=== PATIENT | female | born 2000 | race Two or more races ===

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

== ENCOUNTER 2018-01-28 06:00 | Emergency (ER) | payer SELFPAY ==
--- NOTE | 2018-01-28 06:42 | ER Document Report ---
ED General - General Chief Complaint: Vaginal Bleeding Stated Complaint: VAGINAL BLEEDING Time Seen by Provider: 01/28/18 06:31 Mode of Arrival: Ambulatory Information source: Patient Notes: 18-year-old female presents emergency department with complaints of suprapubic cramping, abnormal vaginal discharge, vaginal burning for the last few weeks. Patient states that she has been having unprotected sex. Patient is concerned she might have contracted a sexually transmitted disease. Patient states that her last menstrual period was a month ago. She has not taken a home test. She denies any nausea, vomiting, diarrhea, constipation. TRAVEL OUTSIDE OF THE [place] IN LAST 30 DAYS: No - HPI Onset: Other - weeks Onset/Duration: Gradual Quality of pain: Cramping Associated symptoms: Other - vaginal discharge Exacerbated by: Denies Relieved by: Denies Similar symptoms previously: No Recently seen / treated by doctor: No - Related Data Allergies/Adverse Reactions: No Known Allergies Allergy (Verified 12/10/17 14:59) Past Medical History - General Information source: Patient Last Menstrual Period: 12/27/2017 - Social History Smoking Status: Current Every Day Smoker Chew tobacco use (# tins/day): No Frequency of alcohol use: Occasional Drug Abuse: None Family History: Reviewed & Not Pertinent Patient has suicidal ideation: No Patient has homicidal ideation: No Renal/ Medical History: Denies: Hx Peritoneal Dialysis Review of Systems - Review of Systems Constitutional: No symptoms reported EENT: No symptoms reported Cardiovascular: No symptoms reported Respiratory: No symptoms reported Gastrointestinal: No symptoms reported Genitourinary: Dysuria, Discharge, Hematuria Female Genitourinary: Vaginal discharge Musculoskeletal: No symptoms reported Skin: No symptoms reported Hematologic/Lymphatic: No symptoms reported Neurological/Psychological: No symptoms reported -: Yes All other systems reviewed and negative Physical Exam - Vital signs Vitals: Temp Pulse Resp BP Pulse Ox 97.5 F 84 16 151/82 H 97 01/28/18 06:02 01/28/18 06:02 01/28/18 06:02 01/28/18 06:02 01/28/18 06:02 - Notes Notes: PHYSICAL EXAMINATION: GENERAL: Well-appearing, well-nourished and in no acute distress. HEAD: Atraumatic, normocephalic. EYES: Pupils equal round and reactive to light, extraocular movements intact, conjunctiva are normal. ENT: Nares patent, oropharynx clear without exudates. Moist mucous membranes. NECK: Normal range of motion, supple without lymphadenopathy LUNGS: Breath sounds clear to auscultation bilaterally and equal. No wheezes rales or rhonchi. HEART: Regular rate and rhythm without murmurs ABDOMEN: Soft, nontender, nondistended abdomen. No guarding, no rebound. No masses appreciated. Female : White vaginal discharge. +CMT. No ovarian tenderness to palpation. Musculoskeletal: Normal range of motion, no pitting or edema. No cyanosis. NEUROLOGICAL: Cranial nerves grossly intact. Normal speech, normal gait. Normal sensory, motor exams PSYCH: Normal mood, normal affect. SKIN: Warm, Dry, normal turgor, no rashes or lesions noted. Course - Re-evaluation Re-evalutation: 01/28/18 07:54 Patient requesting treatment for gonorrhea and Chlamydia. Patient given Rocephin and azithromycin in the emergency department. Pelvic labs were obtained. No trichomonas appreciated. No signs of urinary tract infection. Patient is not . Patient instructed to follow-up with her primary care physician this week, to take [id number] medications as needed for symptom relief, and to return to the emergency department for worsening symptoms. Patient is agreeable with plan of care. - Vital Signs Vital signs: Temp Pulse Resp BP Pulse Ox 98.2 F 64 18 128/73 H 100 01/28/18 07:39 01/28/18 07:39 01/28/18 07:39 01/28/18 07:39 01/28/18 07:39 - Laboratory Laboratory results interpreted by me: 01/28/18 06:33 Urine Urobilinogen 2.0 H Discharge - Discharge Clinical Impression: Cervicitis Condition: Good Disposition: HOME, SELF-CARE Instructions: Cervicitis ([facility]) Referrals: LETITIA WILLS MD [ACTIVE STAFF] - Follow up as needed
[2018-01-28 07:03] LABS: APPEARANCE,URINE CLEAR; BILIRUBIN,URINE NEGATIVE (NEGATIVE); COLOR,URINE YELLOW; GLUCOSE, URINE NEGATIVE (NEGATIVE); KETONES,URINE NEGATIVE (NEGATIVE); LEUKOCYTE ESTERASE,URINE NEGATIVE (NEGATIVE); NITRITE,URINE NEGATIVE (NEGATIVE); PROTEIN,URINE NEGATIVE (NEGATIVE); URINE SPECIFIC GRAVITY 1.024
[2018-01-28] MEDS ORDERED: CEFTRIAXONE INJ 250 MG VIAL IM ONE (07:26)
[2018-01-28] MEDS ORDERED: LIDOCAINE 1% INJ (10 MG/ML) 10 ML MDV INJ ONE (07:26)
[2018-01-28] MEDS ORDERED: AZITHROMYCIN 250 MG TABLET PO ONE (07:26)
[2018-01-28 07:40] VITALS: BP 128/73
[2018-01-28 07:40] LABS: RBCS (WET MOUNT) RARE RBCS SEEN; T.VAGINALIS (WET MOUNT) NO TRICHOMONAS SEEN; WBCS (WET MOUNT) FEW WBCS SEEN; YEAST (WET MOUNT) NO YEAST SEEN
[2018-01-28 09:08] LABS: CHLAM PCR NOT DETECTED (NOT DETECT); GON PCR NOT DETECTED (NOT DETECT)
== END 2018-01-28 08:00 | disposition home or self-care (01) ==
LOC: ER 06:00
DX: N72 Inflammatory disease of cervix uteri (principal); N89.8 Other specified noninflammatory disorders of vagina; Z20.2 Contact with and (suspected) exposure to infections with a predominantly sexual mode of transmission; F17.200 Nicotine dependence, unspecified, uncomplicated
CPT/HCPCS: 99284; 96372; 87210; 81025; 81001; 87491; 87591; J0696

== ENCOUNTER 2019-06-21 17:13 | Outpatient (CLI) | payer MEDICAID ==
[2019-06-21 18:12] LABS: ABSOLUTE EOSINOPHILS # (AUTO) 0.1 10^3/uL (0.0-0.6); ABSOLUTE LYMPHOCYTES (AUTO) 1.9 10^3/uL (0.5-4.7); ABSOLUTE MONOCYTES (AUTO) 0.9 10^3/uL (0.1-1.4); ABSOLUTE NEUT (AUTO) 5.7 10^3/uL (1.7-8.2); BASOPHILS % (AUTO) 0.2 % (0-2); EOSINOPHILS % (AUTO) 1.1 % (0-6); HEMATOCRIT 31.7 % (36.0-47.0); HEMOGLOBIN 10.6 g/dL (12.0-15.5); LYMPHOCYTES % (AUTO) 21.7 % (13-45); MEAN CORPUSCULAR HEMOGLOBIN 28.3 pg (27.0-33.4); MEAN CORPUSCULAR HGB CONC 33.4 g/dL (32.0-36.0); MEAN CORPUSCULAR VOLUME 85 fl (80-97); MONOCYTES % (AUTO) 10.4 % (3-13); PLATELET COUNT 202 10^3/uL (150-450); RED BLOOD COUNT 3.73 10^6/uL (3.72-5.28); RED CELL DISTRIBUTION WIDTH 13.5 % (11.5-14.0); TOTAL CELLS COUNTED % (AUTO) 100 %; WHITE BLOOD COUNT 8.6 10^3/uL (4.0-10.5)
[2019-06-21 18:18] LABS: SEGMENTED NEUTROPHILS % (AUTO) 66.6 % (42-78)
[2019-06-21 18:25] LABS: URINE CREATININE 171.8 mg/dL (16-327)
[2019-06-21 18:29] LABS: ALKALINE PHOSPHATASE 160 U/L (38-126); ANION GAP 9 (5-19); ASPARTATE AMINO TRANSFERASE 14 U/L (14-36); BILIRUBIN,DIRECT 0.2 mg/dL (0.0-0.4); BILIRUBIN,TOTAL 0.4 mg/dL (0.2-1.3); BLOOD UREA NITROGEN 7 mg/dL (7-20); CALCIUM 8.7 mg/dL (8.4-10.2); CARBON DIOXIDE 21 mmol/L (22-30); CHLORIDE 107 mmol/L (98-107); GLUCOSE 82 mg/dL (75-110); URIC ACID 3.1 mg/dL (2.5-6.2)
[2019-06-21 18:59] LABS: APPEARANCE,URINE SLIGHTLY-CLOUDY; BILIRUBIN,URINE NEGATIVE (NEGATIVE); COLOR,URINE YELLOW; GLUCOSE, URINE 50 mg/dL (NEGATIVE); KETONES,URINE NEGATIVE (NEGATIVE); LEUKOCYTE ESTERASE,URINE NEGATIVE (NEGATIVE); NITRITE,URINE NEGATIVE (NEGATIVE); PROTEIN,URINE 30 mg/dL (NEGATIVE); URINE SPECIFIC GRAVITY 1.026; UROBILINOGEN,URINE NEGATIVE mg/dL (<2.0)
[2019-06-21 19:10] LABS: URINE AMPHETAMINES SCREEN NEGATIVE; URINE BARBITURATES SCREEN NEGATIVE; URINE BENZODIAZEPINES SCREEN NEGATIVE; URINE COCAINE SCREEN NEGATIVE; URINE MARIJUANA (THC) SCREEN NEGATIVE; URINE METHADONE SCREEN NEGATIVE; URINE PHENCYCLIDINE SCREEN NEGATIVE
--- NOTE | 2019-06-21 19:18 | Non Stress Test Report ---
Non Stress Test Datetime Report Generated by CPN: 06/21/2019 19:17 DEMOGRAPHIC EGA NST: 37.4 INDICATION Indication for Study (NST) Other: LC- pre-e work up VITAL SIGNS Temperature - NST: 98.6 Pulse - NST: 81 RESP - NST: 15 NBPSYS NST: 133 NBPDIA NST: 69 MONITORING Monitor Explained: Monitor Explained; Test Explained; Patient Verbalized Understanding Time on Monitor: 06/21/2019 18:23 Time off Monitor: 06/21/2019 19:02 NST Duration: 39 NST INTERVENTIONS NST Interventions: PO Hydration Physician Notified NST: Dr Aguirre BABY A: [id number] BABY A Movement : Present Contraction Frequency : irritability FHR Baseline : 130 Accelerations : 15X15 Decelerations : None Variability : Moderate 6-25bpm NST Review: Meets Criteria for Reactive NST NST Review and Verified By : Tasha Camp RNC NST Results: Reactive NST COMMENTS NST Comments: MD on unit reviewing FHT strip NST REPORT Report Trigger: Send Report
== END 2019-06-21 19:10 | disposition home or self-care (01) ==
LOC: LC 17:13
PROVIDERS: ATTEND Student in an Organized Health Care Education/Training Program
PROC: 4A1HXCZ Monitoring of Products of Conception, Cardiac Rate, External Approach (ICD-10-PCS; principal; 2019-06-21)
DX: O24.410 Gestational diabetes mellitus in pregnancy, diet controlled (principal); O16.3 Unspecified maternal hypertension, third trimester; Z3A.37 37 weeks gestation of pregnancy
CPT/HCPCS: 36415; 59025; 80053; 80307; 81001; 82570; 83615; 84156; 84550; 85025

== ENCOUNTER 2019-07-07 07:03 | Inpatient (IN) | payer MEDICAID ==
[2019-07-07 07:50] LABS: APPEARANCE,URINE SLIGHTLY-CLOUDY; BILIRUBIN,URINE NEGATIVE (NEGATIVE); COLOR,URINE YELLOW; GLUCOSE, URINE >=500 mg/dL (NEGATIVE); KETONES,URINE NEGATIVE (NEGATIVE); LEUKOCYTE ESTERASE,URINE NEGATIVE (NEGATIVE); NITRITE,URINE NEGATIVE (NEGATIVE); PROTEIN,URINE NEGATIVE (NEGATIVE); URINE SPECIFIC GRAVITY 1.017; UROBILINOGEN,URINE NEGATIVE mg/dL (<2.0)
[2019-07-07] MEDS ORDERED: MISOPROSTOL 0.2 MG TABLET PO ONE (08:00)
--- NOTE | 2019-07-07 08:07 | Admission Physical ---
Datetime Report Generated by CPN: 07/07/2019 08:07 CURRENT ADMISSION Chief Complaint: Scheduled Induction of Labor Chief Complaint Other: Here for scheduled IOL d/t poorly controled GDM further complicated by CHlamydia in early preg-treated and ASHER negative. Indication for Induction: Maternal Diabetes Indication for Induction- Other: poorly controled GDM on meds Admit Impression : Term, Intrauterine ; Intact Membranes; Induction of Labor Admit Plan: Admit to Unit; Initiate Labor Induction Protocol ALLERGIES Medication Allergies: No Medication Allergies: No Known Allergies (07/07/2019) Latex: No Latex Allergies Food Allergies: none Environmental Allergies: none OBSTETRICAL HISTORY EDC: 07/08/2019 00:00 : 1 Para: 0 Term: 0 : 0 SAB: 0 IAB: 0 Ectopic: 0 Livin Cesareans: 0 VBACs: 0 Multiple Births: 0 Gestational Diabetes: Yes Rh Sensitization: No Incompetent Cervix: No JANIYA: No Infertility: No ART Treatment: No Uterine Anomaly: No IUGR: No Hx Previous C/S: No Macrosomia: No Hx Loss/Stillborn: No PIH: No Hx : No Placenta Previa/Abruption: No Depression/PP Depression: No PTL/PROM: No Post Hemorrhage: No Current Procedures: Ultrasound; NST Obstetrical History Comments: G1- current, GDM diet controlled; +Chlamydia this SEE RECORDS Alcohol: No Marijuana : No Cocaine: No Other Illicit Drugs: No Cigarettes: Former Smoker. 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 Surgery: No Heart Disease: No Hosp/Surgery: Yes Autoimmune Disorder: No Anesthetic Complications: No Kidney Disease: No Abnormal Pap Smear: No Neuro/Epilepsy: No Psychiatric Disorders: No Other Medical Diseases: No Hepatitis/Liver Disease: No Significant Family History: No Varicosities/Phlebitis: No Trauma/Violence : No Thyroid Dysfunction: No Medical History Comments: pyloric stenosis, asthma- had inhaler does not currently, INFECTIOUS HISTORY Gonorrhea: No Genital Herpes: No Chlamydia: Yes Tuberculosis: No Syphilis: No Hepatitis: No HIV/AIDS Exposure: No Rash or Viral Illness: No HPV: No Infectious History Comments: + chlamydia 04/28/19, ASHER negative on 05/16/19 and 06/15/19 PHYSICAL EXAM General: Normal HEENT: Normal Neurologic: Normal Thyroid: Normal Heart: Normal Lungs: Normal Breast: Normal Back: Normal Abdomen: Normal Genitourinary Exam: Normal Extremities: Normal DTRs: Normal Pelvic Type: Adequate Vital Signs: Reviewed VAGINAL EXAM Dilatation: 1 Effacement: 30 Station: -3 Contraction Comments: no regular MEMBRANES Membranes: Intact FETUS A EGA: 39.6 Monitoring: External US FHR- Baseline: 130 Variability: Moderate 6-25bpm Accelerations: 15X15 Decelerations: None FHR Category: Category I Presentation: Vertex Admit Comment: 19 yo G1 at 39.6 wks EGA who is a scheduled IOL d/t poorly controled GDM further complicated by CHlamydia in early preg-treated and ASHER negative -Admit to LDR -NPO and IVFs: LR at 125 cc/hr -CEFM and toco -B+, GBS negative, RPR NR -Last EFW was 4051g or 8 lb 15 oz 97% on 07/12/19 -WIll start cytotec 25 mcg buccally now. Likely perez bulb later this am. -Membranes intact. -Anticipate PLANS FOR LABOR AND DELIVERY Labor and Delivery: None Pain Management: Epidural Feeding Preference: Breast Benefit of Breast Feed Discussed: Yes Circumcision: Yes INFORMED CONSENT Informed Consent Obtained: Vaginal Delivery; Induction of Labor; Risks, Benefits and Alternatives Discussed Signature: with User ID: Claribel : with User ID: Claribel
[2019-07-07 08:08] LABS: URINE AMPHETAMINES SCREEN NEGATIVE; URINE BARBITURATES SCREEN NEGATIVE; URINE BENZODIAZEPINES SCREEN NEGATIVE; URINE COCAINE SCREEN NEGATIVE; URINE MARIJUANA (THC) SCREEN NEGATIVE; URINE METHADONE SCREEN NEGATIVE; URINE PHENCYCLIDINE SCREEN NEGATIVE
[2019-07-07] MEDS ORDERED: GLUCAGON,HUMAN RECOMB 1 MG INJ IM PRN (08:13)
[2019-07-07] MEDS ORDERED: INSULIN REG, HUMAN 100 UNIT/ML 3 ML VIAL (PYX) SUBCUT PRN (08:13)
[2019-07-07] MEDS ORDERED: DEXTROSE 50%-WATER 25 GM/50 ML DISP.SYRIN IV PRN ×2 (08:13)
[2019-07-07] MEDS ORDERED: DEXTROSE 40% GEL 15 GM TUBE PO PRN ×2 (08:13)
[2019-07-07 08:18] LABS: ABSOLUTE EOSINOPHILS # (AUTO) 0.1 10^3/uL (0.0-0.6); ABSOLUTE LYMPHOCYTES (AUTO) 1.7 10^3/uL (0.5-4.7); ABSOLUTE MONOCYTES (AUTO) 0.9 10^3/uL (0.1-1.4); ABSOLUTE NEUT (AUTO) 6.1 10^3/uL (1.7-8.2); BASOPHILS % (AUTO) 0.3 % (0-2); HEMATOCRIT 29.8 % (36.0-47.0); HEMOGLOBIN 10.2 g/dL (12.0-15.5); LYMPHOCYTES % (AUTO) 19.8 % (13-45); MEAN CORPUSCULAR HEMOGLOBIN 28.4 pg (27.0-33.4); MEAN CORPUSCULAR HGB CONC 34.4 g/dL (32.0-36.0); MEAN CORPUSCULAR VOLUME 83 fl (80-97); MONOCYTES % (AUTO) 9.8 % (3-13); PLATELET COUNT 190 10^3/uL (150-450); RED BLOOD COUNT 3.61 10^6/uL (3.72-5.28); RED CELL DISTRIBUTION WIDTH 13.7 % (11.5-14.0); SEGMENTED NEUTROPHILS % (AUTO) 69.1 % (42-78); TOTAL CELLS COUNTED % (AUTO) 100 %; WHITE BLOOD COUNT 8.7 10^3/uL (4.0-10.5)
[2019-07-07] MEDS ORDERED: INSULIN REG, HUMAN 100 UNIT/ML 3 ML VIAL (PYX) ONE (08:20)
[2019-07-07] MEDS: RINGERS SOLUTION,LACTATED 1,000 ML IV PRN ×2 (08:30→17:49)
[2019-07-07 08:46] LABS: ALBUMIN 2.7 g/dL (3.5-5.0); ALKALINE PHOSPHATASE 162 U/L (38-126); ANION GAP 7 (5-19); ASPARTATE AMINO TRANSFERASE 14 U/L (14-36); BILIRUBIN,DIRECT 0.2 mg/dL (0.0-0.4); BILIRUBIN,TOTAL 0.2 mg/dL (0.2-1.3); BLOOD UREA NITROGEN 9 mg/dL (7-20); CALCIUM 8.4 mg/dL (8.4-10.2); CARBON DIOXIDE 19 mmol/L (22-30); CHLORIDE 109 mmol/L (98-107); GLUCOSE 129 mg/dL (75-110); TOTAL PROTEIN 5.6 g/dL (6.3-8.2)
[2019-07-07] MEDS ORDERED: OXYTOCIN 10 UNIT/ML VIAL ONE (09:16)
[2019-07-07] MEDS ORDERED: MISOPROSTOL 0.2 MG TABLET ONE (09:16)
[2019-07-07] MEDS ORDERED: LIDOCAINE 1% INJ-PF (10 MG/ML) 30 ML SDV ONE (09:16)
[2019-07-07] MEDS ORDERED: OXYTOCIN/NORMAL SALINE 20 UNIT/1,000 ML RTUINJ ONE (09:17)
[2019-07-07] MEDS: OXYTOCIN/NORMAL SALINE 20 UNIT/1,000 ML RTUINJ IV PRN (09:28)
[2019-07-07 10:03] LABS: CHLAM PCR NOT DETECTED (NOT DETECT)
[2019-07-07] MEDS ORDERED: DEXTROSE 5%-LACTATED RINGERS 1,000 ML IV PRN (19:14)
[2019-07-07 20:31] LABS: ABSOLUTE LYMPHOCYTES (AUTO) 1.4 10^3/uL (0.5-4.7); ABSOLUTE MONOCYTES (AUTO) 0.8 10^3/uL (0.1-1.4); ABSOLUTE NEUT (AUTO) 10.7 10^3/uL (1.7-8.2); BASOPHILS % (AUTO) 0.1 % (0-2); EOSINOPHILS % (AUTO) 0.2 % (0-6); HEMATOCRIT 29.8 % (36.0-47.0); HEMOGLOBIN 10.1 g/dL (12.0-15.5); LYMPHOCYTES % (AUTO) 11.1 % (13-45); MEAN CORPUSCULAR HEMOGLOBIN 28.1 pg (27.0-33.4); MEAN CORPUSCULAR HGB CONC 33.8 g/dL (32.0-36.0); MEAN CORPUSCULAR VOLUME 83 fl (80-97); MONOCYTES % (AUTO) 6.5 % (3-13); PLATELET COUNT 168 10^3/uL (150-450); RED BLOOD COUNT 3.59 10^6/uL (3.72-5.28); SEGMENTED NEUTROPHILS % (AUTO) 82.1 % (42-78); TOTAL CELLS COUNTED % (AUTO) 100 %
[2019-07-07 20:42] LABS: FIBRINOGEN 822 mg/dL (209-497); INTERNATIONAL RATION (INR) 1.01; PARTIAL THROMBOPLASTIN TIME 28.5 SEC (23.5-35.8); PROTHROMBIN TIME 13.3 SEC (11.4-15.4)
[2019-07-07 20:51] LABS: ALBUMIN 2.6 g/dL (3.5-5.0); ALKALINE PHOSPHATASE 158 U/L (38-126); ANION GAP 6 (5-19); ASPARTATE AMINO TRANSFERASE 15 U/L (14-36); BILIRUBIN,TOTAL 0.4 mg/dL (0.2-1.3); BLOOD UREA NITROGEN 5 mg/dL (7-20); CALCIUM 8.6 mg/dL (8.4-10.2); CARBON DIOXIDE 22 mmol/L (22-30); CHLORIDE 107 mmol/L (98-107); GLUCOSE 102 mg/dL (75-110); POTASSIUM 4.2 mmol/L (3.6-5.0); TOTAL PROTEIN 5.2 g/dL (6.3-8.2)
--- NOTE | 2019-07-08 00:59 | PDOC CONSULTATION ---
Consultation Consult Date: 07/07/19 Attending physician:: NAHED PHOENIX Provider Consulted: BLAS NORIEGA Consult reason:: Chest pain History of Present Illness Admission Date/PCP: 07/07/19 07:03 NAHED PHOENIX MD Patient complains of: Chest pain History of Present Illness: LULU HOGUE is a 19 year old 1 para 0 female who was admitted at greater than 39 weeks gestation for induction of labor due to poorly controlled gestational diabetes mellitus and a chlamydia infection in early . During her induction the patient suddenly developed chest pain which she described as a constant moderately intense sharp tightness in her left upper anterior chest radiating into her left anterior neck. Pain was accompanied by mild dyspnea and was associated with movement of her torso. She denies other associated or accompanying signs and symptoms. The pain gradually resolved over the course of about 1 hour. She denies previous similar episodes. She has not identified any aggravating or ameliorating factors for her chest pain. She reported the pain to her nurse and as a result the hospitalist service was consulted for evaluation. Past Medical History Cardiac Medical History: Denies: Coronary Artery Disease, DVT, Hyperlipidema, Hypertension, Pulmonary Embolism Pulmonary Medical History: Reports: Asthma Denies: Chronic Obstructive Pulmonary Disease (COPD) EENT Medical History: Denies: Cataracts, Ears - Hearing aids Neurological Medical History: Denies: Migraine, Seizures Endocrine Medical History: Reports: Gestational Diabetes, Obesity Denies: Diabetes Mellitus Type 1, Hyperthyroidism, Hypothyroidism Renal/ Medical History: Denies: Chronic Kidney Disease, Nephrolithiasis Malignancy Medical History: Reports: None GI Medical History: Denies: Cirrhosis, Gastroesophageal Reflux Disease, Hepatitis, Peptic Ulcer Disease Musculoskeltal Medical History: Denies: Arthritis, Fibromyalgia Skin Medical History: Denies: Eczema, Psoriasis Psychiatric Medical History: Denies: Alcohol Dependency, Substance Abuse, Tobacco Dependency Traumatic Medical History: Reports: None Hematology: Denies: Anemia, Bleeding Tendencies Infectious Medical History: Reports: None Past Surgical History Past Surgical History: Reports: Other - Pyloric stenosis surgery Social History Information Source: Patient Lives with: Parents Smoking Status: Former Smoker Electronic Cigarette use?: No Frequency of Alcohol Use: None Hx Recreational Drug Use: No Drugs: None Hx Prescription Drug Abuse: No - Advance Directive Resuscitation Status: Full Code Surrogate healthcare decision maker:: Lita Jung Family History Family History: CAD, DM, Hypertension, Malignancy Parental Family History Reviewed: Yes Children Family History Reviewed: No Sibling(s) Family History Reviewed.: Yes Medication/Allergy Home Medications: Vits96/Iron Fum/Folic [ Tablet] 1 each PO DAILY 06/21/19 Allergies/Adverse Reactions: No Known Allergies Allergy (Verified 07/07/19 07:22) Review of Systems Constitutional: ABSENT: chills, fever(s) Eyes: ABSENT: visual disturbances, other - Eye pain Ears: ABSENT: hearing changes, other - Ear pain Nose, Mouth, and Throat: ABSENT: headache(s), sore throat Cardiovascular: PRESENT: edema - Bilateral lower extremities. ABSENT: chest pain, palpitations Respiratory: ABSENT: cough, dyspnea Gastrointestinal: PRESENT: constipation. ABSENT: abdominal pain, diarrhea, nausea, vomiting Genitourinary: ABSENT: dysuria, hematuria Musculoskeletal: ABSENT: back pain, joint swelling Integumentary: ABSENT: pruritus, rash Neurological: ABSENT: confusion, convulsions, focal weakness, memory loss, syncope Psychiatric: ABSENT: anxiety, depression Endocrine: ABSENT: cold intolerance, heat intolerance, polydipsia, polyphagia, polyuria Hematologic/Lymphatic: ABSENT: easy bleeding, easy bruising Allergic/Immunologic: ABSENT: seasonal rhinorrhea Physical Exam Vital Signs: Intake & Output 07/05/19 07/06/19 07/07/19 23:59 23:59 23:59 Intake Total 1000 Balance 1000 Weight 129.8 kg General appearance: PRESENT: no acute distress, cooperative, morbidly obese Head exam: PRESENT: atraumatic, normocephalic Eye exam: ABSENT: conjunctival injection, scleral icterus Ear exam: PRESENT: normal external ear exam. ABSENT: bleeding, drainage Mouth exam: PRESENT: dry mucosa, neck supple Neck exam: ABSENT: thyromegaly, tracheal deviation Respiratory exam: PRESENT: clear to auscultation david, symmetrical, unlabored Cardiovascular exam: PRESENT: RRR. ABSENT: clicks, gallop, rubs Pulses: PRESENT: normal radial pulses, normal dorsalis pedis pul Vascular exam: PRESENT: normal capillary refill. ABSENT: pallor GI/Abdominal exam: PRESENT: normal bowel sounds, soft, other - Gravid uterus at term Rectal exam: PRESENT: deferred Extremities exam: PRESENT: full ROM, +2 edema - 2+ pitting edema of the bilateral lower extremities. ABSENT: joint swelling, tenderness Musculoskeletal exam: PRESENT: ambulatory. ABSENT: deformity, dislocation Neurological exam: PRESENT: alert, oriented to person, oriented to place, oriented to time, oriented to situation, CN II-XII grossly intact. ABSENT: motor sensory deficit Psychiatric exam: PRESENT: appropriate affect, normal mood Skin exam: PRESENT: dry, intact, warm. ABSENT: jaundice, rash, urticaria Results Laboratory Results: 07/07/19 07:57 07/07/19 07:57 07/07/19 07/07/19 07/07/19 07:20 07:57 07:57 WBC 8.7 RBC 3.61 L Hgb 10.2 L Hct 29.8 L MCV 83 MCH 28.4 MCHC 34.4 RDW 13.7 Plt Count 190 Seg Neutrophils % 69.1 Sodium Potassium Chloride Carbon Dioxide Anion Gap BUN Creatinine Est GFR ( Amer) Glucose Calcium Total Bilirubin AST Alkaline Phosphatase Total Protein Albumin Urine Color YELLOW Urine Appearance SLIGHTLY-CLOUDY Urine pH 6.0 Ur Specific Dickey 1.017 Urine Protein NEGATIVE Urine Glucose (UA) >=500 H Urine Ketones NEGATIVE Urine Blood NEGATIVE Urine Nitrite NEGATIVE Ur Leukocyte Esterase NEGATIVE Blood Type B POSITIVE Antibody Screen NEGATIVE 07/07/19 07:57 WBC RBC Hgb Hct MCV MCH MCHC RDW Plt Count Seg Neutrophils % Sodium 135.4 L Potassium 4.0 Chloride 109 H Carbon Dioxide 19 L Anion Gap 7 BUN 9 Creatinine 0.43 L Est GFR ( Amer) > 60 Glucose 129 H Calcium 8.4 Total Bilirubin 0.2 AST 14 Alkaline Phosphatase 162 H Total Protein 5.6 L Albumin 2.7 L Urine Color Urine Appearance Urine pH Ur Specific Dickey Urine Protein Urine Glucose (UA) Urine Ketones Urine Blood Urine Nitrite Ur Leukocyte Esterase Blood Type Antibody Screen Assessment and Plan - Diagnosis (1) Chest pain Qualifiers: Chest pain type: unspecified Qualified Code(s): R07.9 - Chest pain, unspecified Is this a current diagnosis for this admission?: Yes (2) Gestational diabetes mellitus (GDM) in childbirth, diet controlled Is this a current diagnosis for this admission?: Yes (3) Chlamydia infection affecting in first trimester Is this a current diagnosis for this admission?: Yes (4) Term Is this a current diagnosis for this admission?: Yes - Plan Summary Summary: Patient has been reassured that the etiology of her pain is very unlikely to be cardiac and is very highly likely to be musculoskeletal. Serial cardiac enzymes, a CBC, APTT, a PT/INR, a fibrinogen, a metabolic profile and an EKG will be obtained. Further evaluation will be entertained as appropriate. Our service will follow the patient over the course of the next 24 hours. - Time Time Spent with patient: 15-24 minutes Anticipated discharge: Home
[2019-07-08 01:36] LABS: TROPONIN I < 0.012 ng/mL
[2019-07-08] MEDS ORDERED: HYDROMORPHONE HCL INJ/PF 2 MG/ML AMPULE ONE ×2 (02:03→16:03)
[2019-07-08] MEDS ORDERED: HYDROMORPHONE HCL INJ/PF 2 MG/ML AMPULE IV ONE ×2 (02:30→17:00)
[2019-07-08] MEDS ORDERED: BUPIVACAINE HCL 0.25 % INJ/PF (2.5 MG/1 ML) 30 ML VIAL ONE (03:04)
[2019-07-08] MEDS ORDERED: EPHEDRINE SULFATE INJ 50 MG/1 ML AMPULE ONE ×2 (03:04→13:22)
[2019-07-08] MEDS ORDERED: FENTANYL/BUPIVACAINE/NS/PF 300 MCG/150 ML RTUINJ EPI ONE (03:04)
[2019-07-08] MEDS ORDERED: OXYTOCIN/NORMAL SALINE 20 UNIT/1,000 ML RTUINJ ONE ×2 (07:48→13:22)
[2019-07-08 08:03] LABS: CREATINE KINASE MB 1.76 ng/mL (<4.55)
[2019-07-08] MEDS: OXYTOCIN/NORMAL SALINE 20 UNIT/1,000 ML RTUINJ IV PRN (08:04)
[2019-07-08 08:16] LABS: TROPONIN I < 0.012 ng/mL
--- NOTE | 2019-07-08 11:39 | Progress Note ---
Provider Note Provider Note: 07/08/2019 Patient was seen last night for reported atypical chest pain. Since then patient has had 2 negative troponins, first at 0052 hours the second at 0702 hrs. Also 2 negative CK-MB index. Per obstetrics patient is currently in the delivery suite in the process of birthing her child. Last night at the time of consult it was felt that this was probably noncardiac in origin. At this time I will sign off and if patient has further chest pain please reconsult.
[2019-07-08] MEDS ORDERED: CEFAZOLIN 1 GM/D5W RTU 2 GM/100 ML RTUPB IV ONE (12:50)
[2019-07-08] MEDS ORDERED: CITRIC ACID/SODIUM CITRATE ORAL SOLN 15 ML UDCUP ONE (12:51)
[2019-07-08] MEDS ORDERED: OXYTOCIN 10 UNIT/ML VIAL ONE (13:21)
[2019-07-08] MEDS ORDERED: KETOROLAC TROMETHAMINE INJ/PF 30 MG/1 ML SDV ONE (13:21)
[2019-07-08] MEDS ORDERED: ONDANSETRON HCL INJ/PF 4 MG/2 ML SDV ONE (13:22)
[2019-07-08] MEDS ORDERED: MIDAZOLAM 2 MG/2 ML INJ ONE (13:22)
[2019-07-08] MEDS ORDERED: FENTANYL CITRATE INJ/PF 100 MCG/2 ML AMPUL ONE (13:22)
[2019-07-08] MEDS ORDERED: ACETAMINOPHEN 1,000 MG/100 ML RTUPB IV ONE (13:22)
[2019-07-08] MEDS ORDERED: LIDOCAINE 2% INJ-PF (20 MG/ML) 10 ML AMPUL ONE (13:23)
[2019-07-08] MEDS ORDERED: SODIUM BICARBONATE 4.2% INJ (2.5 MEQ/5 ML) VIAL ONE (13:51)
[2019-07-08] MEDS ORDERED: METHYLERGONOVINE MALEATE INJ/PF 0.2 MG/1 ML AMPULE ONE (14:26)
[2019-07-08] MEDS ORDERED: PROMETHAZINE HCL INJ 25 MG/1 ML VIAL IV PRN ×2 (14:38→14:51)
[2019-07-08] MEDS ORDERED: ONDANSETRON HCL INJ/PF 4 MG/2 ML SDV IV PRN (14:38)
[2019-07-08] MEDS ORDERED: FENTANYL CITRATE INJ/PF 100 MCG/2 ML AMPUL IV PRN ×3 (14:38)
[2019-07-08] MEDS ORDERED: OXYCODONE-ACETAMINOPHEN 5-325 MG TABLET PO PRN ×3 (14:38→14:51)
[2019-07-08] MEDS ORDERED: MORPHINE SULFATE 10 MG/ML INJ IV PRN (14:38)
[2019-07-08] MEDS ORDERED: MEPERIDINE HCL/PF INJ 25 MG/1 ML DISP.SYRIN IV PRN (14:38)
[2019-07-08] MEDS ORDERED: DIPHENHYDRAMINE HCL 50 MG/ML VIAL IV PRN (14:38)
[2019-07-08] MEDS ORDERED: ACETAMINOPHEN 325 MG TABLET PO PRN (14:51)
[2019-07-08] MEDS ORDERED: MEASLES,MUMPS&RUBELLA VACC/PF 0.5 ML VIAL SUBCUT PRN (14:51)
[2019-07-08] MEDS ORDERED: ACETAMINOPHEN 1,000 MG/100 ML RTUPB IV PRN (14:51)
[2019-07-08] MEDS ORDERED: DIPH/PERTUSS(ACELL)/TETANUS VAC/PF 0.5 ML SYR (>=10YO) IM PRN (14:51)
[2019-07-08] MEDS ORDERED: SIMETHICONE 80 MG TAB.CHEW PO PRN (14:51)
[2019-07-08] MEDS ORDERED: OXYTOCIN/NORMAL SALINE 20 UNIT/1,000 ML RTUINJ IV PRN (14:51)
--- NOTE | 2019-07-08 15:00 | Operative Report ---
Operative Report DATE OF SURGERY: 07/08/19 PREOPERATIVE DIAGNOSIS: IUP @ 40 wks, noncompliant A2DM, failure to progress POSTOPERATIVE DIAGNOSIS: same OPERATION: Primary low transverse hysterotomy section SURGEON: ABDELRAHMAN PICKERING ANESTHESIA: Epidural COMPLICATIONS: None ESTIMATED BLOOD LOSS: 1000 cc INTRAOPERATIVE FINDINGS: Male cephalic presentation with an OP presentation, Apgars of 8 and 9 PROCEDURE: PROCEDURE IN DETAIL: The patient was taken to the operating room, prepared and draped in a normal sterile fashion in a supine position with a leftward tilt. A transverse skin incision was made with a scalpel and carried through to the underlying layer of fascia with the same scalpel. The fascia was excised in the midline and extended laterally with Pari. The fascia was then dissected from the rectus muscle sharply with Pari and the rectus muscle was divided and the peritoneal cavity was entered sharply with the same Metzenbaum. With good visualization of the bladder and the uterus the bladder blade was inserted. The hysterotomy was nicked with a scalpel and extended laterally with surgeon finger fraction. The infant was then delivered atraumatically. The nose and mouth were suctioned with a suction bulb, the cord was clamped and cut and handed off to awaiting pediatricians. Cord blood was collected. The placenta was removed manually. The uterus was exteriorized and cleared of clots and debris. The hysterotomy was closed with 0 Monocryl in a running, locked fashion. A second layer of the same suture was used to imbricate to ensure hemostasis. The uterus was returned to the abdomen and peritoneal cavity was cleared of clots and debris. The rectus muscle and peritoneum were repaired with mattress stitch of 2-0 Chromic. The fascia was closed with 0-Vicryl. The subcutaneous layer was closed with plain catgut and the skin was closed with 4-0 Vicryl. The patient tolerated the procedure well. Sponge, lap, and needle counts correct x2 and the patient was taken to recovery in stable condition.
[2019-07-08] MEDS: RINGERS SOLUTION,LACTATED 1,000 ML IV PRN (15:55)
--- NOTE | 2019-07-08 16:37 | Delivery Summary ---
Del Sum A-C Datetime Report Generated by CPN: 07/08/2019 16:37 DELIVERY PERSONNEL DELIVERY PERSONNEL: [id number] Delivery Doctor:: Reshma Chen MD Anesthesiologist:: Valeria Shafer MD TIRE INSPECTOR:: Joselyn Mohr CRNA Labor and Delivery Nurse:: Sarah Del Valle RN Flat Sorting Machine Clerk:: Parris Smiley RN Neonatal Nurse Practitioner:: JOSE Calvillo Nursery Nurse:: Bethanie Porter RN Queen'S Counsel/TRANSMISSION REPAIRER: ST [facility] Queen'S Counsel/TRANSMISSION REPAIRER: Sasha Feng, PIERCING ARTIST MATERNAL INFORMATION Delivery Anesthesia: Epidural Medications After Delivery: Pitocin Bolus-Please Comment; Pitocin Drip 20 Units/1000ml NSS; Methergine 0.2mg IM Meds After Delivery Comment: Cytotec 200 mg Buccal Delivery QBL: 930 Maternal Complications: None LABOR SUMMARY EDC: 07/08/2019 00:00 No. Babies in Womb: 1 Attempted: No Labor Anesthesia: Epidural LABOR INFORMATION Reason for Induction: Maternal Diabetes Reason for Induction- Other: uncontrolled GDM Onset of Labor: 07/08/2019 01:11 Complete Dilatation: 07/08/2019 10:47 Oxytocin: Induction Group B Beta Strep: negative Antibiotics # of Doses: 0 Antibiotics Time of Last Dose: n/a Name of Antibiotic Given: n/a Steroids Given: None Reason Steroids Not Administered: Not Applicable MEMBRANES Membranes Rupture Method: Spontaneous Rupture of Membranes: 07/08/2019 01:11 Length of Rupture (hr): 13.18 Amniotic Fluid Color: Clear Amniotic Fluid Amount: Small Amniotic Fluid Odor: Normal STAGES OF LABOR Stage 1 hr: 9 Stage 1 min: 36 Stage 2 hr: 3 Stage 2 min: 35 Stage 3 hr: 0 Stage 3 min: 1 Total Time in Labor hr: 13 Total Time in Labor min: 12 VAGINAL DELIVERY Episiotomy: None Laceration #1: None Laceration Extension #1: N/A Laceration Repair: Not Applicable Sponge Count Correct: N/A Sharps Count Correct: N/A CSECTION DELIVERY Primary Indication: Failed Induction Secondary Indication: Arrest of Descent CSection Urgency: Non-Scheduled CSection Incidence: Primary Labor: Labor Elective: Nonelective CSection Incision: Lower Uterine Transverse BABY A INFORMATION Infant Delivery Date/Time: 07/08/2019 14:22 Method of Delivery: Nurse Controlled Delivery: No Born in Route : No : N/A Forceps: N/A Vacuum Extraction: N/A Shoulder Dystocia : No PRESENTATION/POSITION BABY A Presentation: Cephalic Cephalic Presentation: Vertex Vertex Position: N/A Breech Presentation: N/A PLACENTA INFORMATION BABY A Placenta Delivery Time : 07/08/2019 14:23 Placenta Method of Delivery: Manual Removal Placenta Status: Delivered SCORES BABY A Heart Rate 1 min: >100 bpm Resp Effort 1 min: Good Cry Reflex Irritability 1 min: Cough or Sneeze or Pulls Away Muscle Tone 1 min: Active Motion Color 1 min: Body [place], Extremities Blue Resuscitation Effort 1 min: Tactile Stimulation SCORE 1 MIN: 9 Heart Rate 5 min: >100 bpm Resp Effort 5 min: Good Cry Reflex Irritability 5 min: Cough or Sneeze or Pulls Away Muscle Tone 5 min: Active Motion Color 5 min: Body [place], Extremities Blue Resuscitation Effort 5 min: Tactile Stimulation SCORE 5 MIN: 9 INFORMATION BABY A Gestational Age at Delivery: 40.0 Gestational Status: Full Term- 39- 40.6 Weeks Infant Outcome : Liveborn Condition : Stable Sex: Male IDENTIFICATION BABY A Verification Date/Time: 07/08/2019 15:17 ID Band Number: [id number] Mother's Name Verified: Yes Infant RN Verifying : MMobley RN, RMarhefka RN WEIGHT/LENGTH BABY A Infant Birthweight (gm): 3955 Infant Weight (lb): 8 Infant Weight (oz): 12 Length (in): 21.00 Infant Length (cm): 53.34 CORD INFORMATION BABY A No. Cord Vessels: 3 Nuchal Cord : N/A Cord Blood Taken: Yes-For Storage (Mom's Blood type +) Suction: Mouth; Nose ASSESSMENT BABY A Skin to Skin: Yes Skin to Skin Time (min): 15 BABY B INFORMATION : N/A SIGNATURES : I was personally available for consultation and serving as supervising physician for the MLP.
[2019-07-08] MEDS ORDERED: MORPHINE SULFATE 10 MG/ML INJ ONE (16:40)
[2019-07-08] MEDS: MORPHINE SULFATE 10 MG/ML INJ IV PRN (16:44)
[2019-07-08] MEDS: DOCUSATE SODIUM 100 MG CAPSULE PO SCH (17:34)
--- NOTE | 2019-07-08 18:23 | EKG REPORT ---
SEVERITY:- NORMAL ECG - SINUS RHYTHM : Confirmed by: Ailyn Suárez MD 08-Jul-2019 18:23:05
[2019-07-08] MEDS: OXYCODONE-ACETAMINOPHEN 5-325 MG TABLET PO PRN (20:20)
[2019-07-08] MEDS: KETOROLAC TROMETHAMINE INJ/PF 30 MG/1 ML SDV IV SCH (23:02)
[2019-07-09] MEDS: MORPHINE SULFATE 10 MG/ML INJ IV PRN (00:28)
[2019-07-09] MEDS ORDERED: RINGERS SOLUTION,LACTATED 1,000 ML IV ONE (02:30)
[2019-07-09] MEDS: RINGERS SOLUTION,LACTATED 1,000 ML IV PRN (03:46)
[2019-07-09] MEDS: IBUPROFEN 800 MG TABLET PO SCH ×5 (04:20→23:02)
[2019-07-09] MEDS: OXYCODONE-ACETAMINOPHEN 5-325 MG TABLET PO PRN ×3 (05:11→17:24)
[2019-07-09] MEDS: KETOROLAC TROMETHAMINE INJ/PF 30 MG/1 ML SDV IV SCH ×3 (05:11→21:30)
[2019-07-09 07:09] LABS: HEMATOCRIT 22.5 % (36.0-47.0); MEAN CORPUSCULAR HEMOGLOBIN 27.3 pg (27.0-33.4); MEAN CORPUSCULAR HGB CONC 32.9 g/dL (32.0-36.0); MEAN CORPUSCULAR VOLUME 83 fl (80-97); PLATELET COUNT 162 10^3/uL (150-450); RED BLOOD COUNT 2.72 10^6/uL (3.72-5.28); RED CELL DISTRIBUTION WIDTH 13.9 % (11.5-14.0); WHITE BLOOD COUNT 17.4 10^3/uL (4.0-10.5)
[2019-07-09 07:16] LABS: HEMOGLOBIN 7.4 g/dL (12.0-15.5)
[2019-07-09] MEDS: FERROUS SULFATE 325 MG TABLET PO SCH ×2 (09:56→17:24)
[2019-07-09] MEDS: PRENATAL VITAMIN W DHA CAPSULE PO SCH (09:56)
[2019-07-09] MEDS: ASCORBIC ACID 500 MG TABLET PO SCH ×2 (09:56→17:24)
[2019-07-09] MEDS: DOCUSATE SODIUM 100 MG CAPSULE PO SCH ×2 (09:56→17:24)
[2019-07-09] MEDS ORDERED: NORMAL SALINE 250 ML IV PRN (12:35)
--- NOTE | 2019-07-09 12:35 | PDOC PROGRESS REPORT ---
Subjective-OB Progress Note for:: 07/09/19 Subjective: Pt doing well, no complaints of pain. She is pale. FC was removed but she has not been OOB yet, Teds/SCDs in place. She has had reg diet, light bleeding, no flatus yet. Agrees to PRBCs d/t hgb 7. Physical Exam (OB) Vital Signs: Temp Pulse Resp BP Pulse Ox 98.8 F 107 H 18 126/61 H 99 07/09/19 11:53 07/09/19 11:53 07/09/19 11:53 07/09/19 11:53 07/09/19 11:53 Intake & Output 07/08/19 07/09/19 07/10/19 06:59 06:59 06:59 Intake Total 1999 1136 Output Total 650 1200 Balance 1999 486 -1200 Weight 129.8 kg - Incision: Dressing Closure Type: Surgical Glue - Lochia Lochia Amount: Small 10-25 ml Lochia Color: Rubra/Red - Abdomen Description: Tender, Soft Hernia Present: No Fundal Description: Firm, Midline Fundal Height: u/u - u/2 Objective-Diagnostic Laboratory: 07/09/19 06:05 07/07/19 20:24 07/09/19 06:05 WBC 17.4 H RBC 2.72 L Hgb 7.4 L D Hct 22.5 L MCV 83 MCH 27.3 MCHC 32.9 RDW 13.9 Plt Count 162 07/08/19 07/08/19 07/08/19 00:52 00:52 07:02 Creatine Kinase 55 50 CK-MB (CK-2) 2.10 Troponin I < 0.012 07/08/19 07:02 Creatine Kinase CK-MB (CK-2) 1.76 Troponin I < 0.012 Assessment and Plan(PN) - Assessment and Plan (1) hemorrhage Qualifiers: hemorrhage type: third-stage Qualified Code(s): O72.0 - Third- stage hemorrhage Is this a current diagnosis for this admission?: Yes (2) Acute blood loss anemia Is this a current diagnosis for this admission?: Yes (3) delivery delivered Is this a current diagnosis for this admission?: Yes (4) Chest pain Qualifiers: Chest pain type: unspecified Qualified Code(s): R07.9 - Chest pain, unspecified Is this a current diagnosis for this admission?: Yes (5) Chlamydia infection affecting in first trimester Is this a current diagnosis for this admission?: Yes (7) Failure of descent in labor, delivered, current hospitalization Is this a current diagnosis for this admission?: Yes (8) Gestational diabetes mellitus (GDM) in childbirth, diet controlled Is this a current diagnosis for this admission?: Yes (9) Term Is this a current diagnosis for this admission?: Yes Plan:: Transfuse 2 units PRBCs - Time Spent with Patient Time with patient: Less than 15 minutes Medications reviewed and adjusted accordingly: Yes - Disposition Anticipated Discharge: Home Within: within 24 hours
[2019-07-10] MEDS: KETOROLAC TROMETHAMINE INJ/PF 30 MG/1 ML SDV IV SCH ×2 (05:55→14:16)
[2019-07-10] MEDS: IBUPROFEN 800 MG TABLET PO SCH ×2 (05:55→12:16)
[2019-07-10 06:34] LABS: ABSOLUTE EOSINOPHILS # (AUTO) 0.1 10^3/uL (0.0-0.6); ABSOLUTE LYMPHOCYTES (AUTO) 1.7 10^3/uL (0.5-4.7); ABSOLUTE MONOCYTES (AUTO) 1.4 10^3/uL (0.1-1.4); ABSOLUTE NEUT (AUTO) 9.9 10^3/uL (1.7-8.2); BASOPHILS % (AUTO) 0.3 % (0-2); EOSINOPHILS % (AUTO) 0.8 % (0-6); HEMATOCRIT 26.7 % (36.0-47.0); HEMOGLOBIN 9.1 g/dL (12.0-15.5); LYMPHOCYTES % (AUTO) 13.2 % (13-45); MEAN CORPUSCULAR HEMOGLOBIN 28.2 pg (27.0-33.4); MEAN CORPUSCULAR HGB CONC 34.1 g/dL (32.0-36.0); MEAN CORPUSCULAR VOLUME 83 fl (80-97); MONOCYTES % (AUTO) 10.4 % (3-13); PLATELET COUNT 188 10^3/uL (150-450); RED BLOOD COUNT 3.23 10^6/uL (3.72-5.28); RED CELL DISTRIBUTION WIDTH 14.2 % (11.5-14.0); SEGMENTED NEUTROPHILS % (AUTO) 75.3 % (42-78); TOTAL CELLS COUNTED % (AUTO) 100 %; WHITE BLOOD COUNT 13.2 10^3/uL (4.0-10.5)
--- NOTE | 2019-07-10 08:56 | PDOC DISCHARGE SUMMARY ---
Impression - Admit/DC Date/PCP Admission Date/Primary Care Provider: 07/07/19 07:03 NAHED PHOENIX MD Discharge Date: 07/10/19 - Discharge Diagnosis (1) hemorrhage Is this a current diagnosis for this admission?: Yes (2) Acute blood loss anemia Is this a current diagnosis for this admission?: Yes (3) delivery delivered Is this a current diagnosis for this admission?: Yes (4) Chest pain Is this a current diagnosis for this admission?: Yes (5) Chlamydia infection affecting in first trimester Is this a current diagnosis for this admission?: Yes (6) Encounter for planned induction of labor Is this a current diagnosis for this admission?: Yes (7) Failure of descent in labor, delivered, current hospitalization Is this a current diagnosis for this admission?: Yes (8) Gestational diabetes mellitus (GDM) in childbirth, diet controlled Is this a current diagnosis for this admission?: Yes (9) Term Is this a current diagnosis for this admission?: Yes - Assessment Summary: Patient has been reassured that the etiology of her pain is very unlikely to be cardiac and is very highly likely to be musculoskeletal. Serial cardiac enzymes, a CBC, APTT, a PT/INR, a fibrinogen, a metabolic profile and an EKG will be obtained. Further evaluation will be entertained as appropriate. Our service will follow the patient over the course of the next 24 hours. - Additional Information Resuscitation Status: Full Code Discharge Diet: Regular Discharge Activity: Balance Activity w/Rest, No Lifting Over 10 Pounds, No Lifting/Push/Pulling, No tub bath Referrals: [facility] [Provider Group] ([address] [facility] for incision check. ) Home Medications: Vits96/Iron Fum/Folic [ Tablet] 1 each PO DAILY 06/21/19 HPI Reason(s) for Admission: Induction of Labor, Ceasarean Section-Primary, Obstetric Complications Admission Note: failure to descend Procedures: NST Intrapartum Procedure(s): : Low Cervical, Transverse Results Laboratory Results: WBC 13.2 10^3/uL (4.0-10.5) H 07/10/19 06:20 RBC 3.23 10^6/uL (3.72-5.28) L 07/10/19 06:20 Hgb 9.1 g/dL (12.0-15.5) L 07/10/19 06:20 Hct 26.7 % (36.0-47.0) L 07/10/19 06:20 MCV 83 fl (80-97) 07/10/19 06:20 MCH 28.2 pg (27.0-33.4) 07/10/19 06:20 MCHC 34.1 g/dL (32.0-36.0) 07/10/19 06:20 RDW 14.2 % (11.5-14.0) H 07/10/19 06:20 Plt Count 188 10^3/uL (150-450) 07/10/19 06:20 Lymph % (Auto) 13.2 % (13-45) 07/10/19 06:20 [place] % (Auto) 10.4 % (3-13) 07/10/19 06:20 Eos % (Auto) 0.8 % (0-6) 07/10/19 06:20 Baso % (Auto) 0.3 % (0-2) 07/10/19 06:20 Absolute Neuts (auto) 9.9 10^3/uL (1.7-8.2) H 07/10/19 06:20 Absolute Lymphs (auto) 1.7 10^3/uL (0.5-4.7) 07/10/19 06:20 Absolute Monos (auto) 1.4 10^3/uL (0.1-1.4) 07/10/19 06:20 Absolute Eos (auto) 0.1 10^3/uL (0.0-0.6) 07/10/19 06:20 Absolute Basos (auto) 0.0 10^3/uL (0.0-0.2) 07/10/19 06:20 Seg Neutrophils % 75.3 % (42-78) 07/10/19 06:20 PT 13.3 SEC (11.4-15.4) 07/07/19 20:24 INR 1.01 07/07/19 20:24 APTT 28.5 SEC (23.5-35.8) 07/07/19 20:24 Fibrinogen 822 mg/dL (209-497) H 07/07/19 20:24 Sodium 134.9 mmol/L (137-145) L 07/07/19 20:24 Potassium 4.2 mmol/L (3.6-5.0) 07/07/19 20:24 Chloride 107 mmol/L (98-107) 07/07/19 20:24 Carbon Dioxide 22 mmol/L (22-30) 07/07/19 20:24 Anion Gap 6 (5-19) 07/07/19 20:24 BUN 5 mg/dL (7-20) L 07/07/19 20:24 Creatinine 0.46 mg/dL (0.52-1.25) L 07/07/19 20:24 Est GFR ( Amer) > 60 (>60) 07/07/19 20:24 Est GFR (MDRD) Non-Af > 60 (>60) 07/07/19 20:24 Glucose 102 mg/dL (75-110) 07/07/19 20:24 POC Glucose 79 mg/dL (70-110) 07/08/19 10:03 Hemoglobin A1c % 5.2 % (4.7-6.0) 07/07/19 20:24 Calcium 8.6 mg/dL (8.4-10.2) 07/07/19 20:24 Magnesium 1.6 mg/dL (1.6-2.3) 07/07/19 20:24 Total Bilirubin 0.4 mg/dL (0.2-1.3) 07/07/19 20:24 Direct Bilirubin 0.0 mg/dL (0.0-0.4) 07/07/19 20:24 Neonat Total Bilirubin Not Reportable 07/07/19 20:24 Neonat Direct Bilirubin Not Reportable 07/07/19 20:24 Neonat Indirect Bili Not Reportable 07/07/19 20:24 AST 15 U/L (14-36) 07/07/19 20:24 ALT 9 U/L (<35) 07/07/19 20:24 Alkaline Phosphatase 158 U/L (38-126) H 07/07/19 20:24 Creatine Kinase 50 U/L (30-135) 07/08/19 07:02 CK-MB (CK-2) 1.76 ng/mL (<4.55) 07/08/19 07:02 Troponin I < 0.012 ng/mL 07/08/19 07:02 Total Protein 5.2 g/dL (6.3-8.2) L 07/07/19 20:24 Albumin 2.6 g/dL (3.5-5.0) L 07/07/19 20:24 Urine Color YELLOW 07/07/19 07:20 Urine Appearance SLIGHTLY-CLOUDY 07/07/19 07:20 Urine pH 6.0 (5.0-9.0) 07/07/19 07:20 Ur Specific Branch 1.017 07/07/19 07:20 Urine Protein NEGATIVE mg/dL (NEGATIVE) 07/07/19 07:20 Urine Glucose (UA) >=500 mg/dL (NEGATIVE) H 07/07/19 07:20 Urine Ketones NEGATIVE mg/dL (NEGATIVE) 07/07/19 07:20 Urine Blood NEGATIVE (NEGATIVE) 07/07/19 07:20 Urine Nitrite NEGATIVE (NEGATIVE) 07/07/19 07:20 Urine Bilirubin NEGATIVE (NEGATIVE) 07/07/19 07:20 Urine Urobilinogen NEGATIVE mg/dL (<2.0) 07/07/19 07:20 Ur Leukocyte Esterase NEGATIVE (NEGATIVE) 07/07/19 07:20 Urine Ascorbic Acid NEGATIVE (NEGATIVE) 07/07/19 07:20 Urine Opiates Screen NEGATIVE 07/07/19 07:20 Urine Methadone Screen NEGATIVE 07/07/19 07:20 Ur Barbiturates Screen NEGATIVE 07/07/19 07:20 Ur Phencyclidine Scrn NEGATIVE 07/07/19 07:20 Ur Amphetamines Screen NEGATIVE 07/07/19 07:20 U Benzodiazepines Scrn NEGATIVE 07/07/19 07:20 Urine Cocaine Screen NEGATIVE 07/07/19 07:20 U Marijuana (THC) Screen NEGATIVE 07/07/19 07:20 RPR NONREACTIVE (NONREACTIVE) 07/07/19 07:57 Chlamydia DNA (PCR) NOT DETECTED (NOT DETECT) 07/07/19 07:20 N.gonorrhoeae DNA (PCR) NOT DETECTED (NOT DETECT) 07/07/19 07:20 Blood Type B POSITIVE 07/07/19 07:57 Blood Type Confirm B POSITIVE 07/09/19 12:58 Antibody Screen NEGATIVE 07/07/19 07:57 Crossmatch See Detail 07/07/19 07:57 07/08/19 07/08/19 00:52 07:02 CK-MB (CK-2) 2.10 1.76 Troponin I < 0.012 < 0.012 Plan Plan of Treatment: f/u at [facility] 1 wk for incision check Continue to monitor blood glucose 2 x a week and bring log to your 4 wk check to avoid doing a 2 * glucose test Time Spent: Less than 30 Minutes
[2019-07-10] MEDS: ASCORBIC ACID 500 MG TABLET PO SCH (09:55)
[2019-07-10] MEDS: DOCUSATE SODIUM 100 MG CAPSULE PO SCH (09:57)
[2019-07-10] MEDS: PRENATAL VITAMIN W DHA CAPSULE PO SCH (09:58)
[2019-07-10] MEDS: FERROUS SULFATE 325 MG TABLET PO SCH (09:58)
[2019-07-10 12:07] VITALS: BP 132/65
== END 2019-07-10 14:45 | disposition home or self-care (01) | DRG 787 ==
LOC: LR 07:03 → 2S 07-08 17:23
PROVIDERS: ADMIT Student in an Organized Health Care Education/Training Program; ATTEND Obstetrics & Gynecology
PROC: 10D00Z1 Extraction of Products of Conception, Low, Open Approach (ICD-10-PCS; principal; 2019-07-08)
PROC: 30233N1 Transfusion of Nonautologous Red Blood Cells into Peripheral Vein, Percutaneous Approach (ICD-10-PCS; 2019-07-09)
DX: O24.420 Gestational diabetes mellitus in childbirth, diet controlled (principal); D62 Acute posthemorrhagic anemia; O72.1 Other immediate postpartum hemorrhage; O61.0 Failed medical induction of labor; O99.02 Anemia complicating childbirth; Z37.0 Single live birth; O99.52 Diseases of the respiratory system complicating childbirth; Z3A.40 40 weeks gestation of pregnancy; Z87.891 Personal history of nicotine dependence; O99.89 Other specified diseases and conditions complicating pregnancy, childbirth and the puerperium; R07.89 Other chest pain; Z86.19 Personal history of other infectious and parasitic diseases
CPT/HCPCS: 36415; 36430; 80053; 80307; 81005; 82550; 82553; 82962; 83036; 83735; 84484; 85025; 85027; 85384; 85610; 85730; 86592; 86850; 86900; 86901; 86920; 87070; 87491; 87591; 93005; 93010; 94760; 94799; J0131; J0690; J1170; J1815; J1885; J2210; J2250; J2270; J2405; J2590; J3010; J3490; J7050; J7120; P9016